=== PATIENT | female | born 1940 ===

== ENCOUNTER 2016-06-26 19:50 | Inpatient (IN) | payer MEDICARE, BC ==
[~2016-06-26] VITALS: Ht 167.6 cm; Wt 111.9 kg
--- NOTE | ~2016-06-26 | OR ---
PATIENT'S NAME: NEREIDA PINEDA [facility] AGE: 75 Y [address] ROOM: [place] [address] [place] [facility] [place]: 06/26/[place] OR/Procedure Report DISCHARGE DATE: 07/04/2016 FAMILY PHYSICIAN: Nash Cervantes MD ATTENDING PHYSICIAN: Joel Figueroa SURGEON: Joel Figueroa MD VASCULAR SURGERY PHYSICIAN: Val Phillips PA-C DATE OF PROCEDURE: 06/28/2016 PREOPERATIVE DIAGNOSES: 1. Small bowel obstruction with possible small bowel abscess versus microperforation versus small-bowel diverticulitis. 2. Abdominal wall hernia. POSTOPERATIVE DIAGNOSES: 1. Small-bowel obstruction secondary to small bowel diverticulitis without evidence of perforation. 2. Abdominal wall hernia. PROCEDURES: 1. Exploratory laparotomy with small-bowel resection of mid-ilium and side- to-side stapled anastomosis. 2. Repair of an abdominal wall hernia with primary closure. ANESTHESIA: General. ESTIMATED BLOOD LOSS: Minimum. SPECIMEN: six inches of small bowel and hernia sac. INDICATION: The patient is a 75-year-old young lady, who was admitted to the hospital with abdominal pain. CT evaluation found there to be evidence of possibly a small bowel perforation with confined abscess. However, she had incomplete obstruction. It was suspicious for even a diverticulum given the mesentery edema. She did not get better and we elected to take her to the operating room for operative intervention. DESCRIPTION OF PROCEDURE: After informed consent, the patient was taken to the operating room. After general endotracheal anesthesia, the patient's abdomen was prepped and draped into a sterile field from the umbilicus, which was noted evidence hernia. We did a skin incision just below the umbilicus. We went down to the hernia defect divided the fascia above and below, entering the peritoneal cavity. No free fluid or free air. We decompressed small bowel and we traced it down to the ileocecal valve region. It was normal with no evidence of appendicitis. We then traced up small bowel up to PATIENT'S NAME: NEREIDA PINEDA [facility] AGE: 75 Y [address] ROOM: [place] [address] [place] [facility] [place]: 06/26/2016 OR/Procedure Report DISCHARGE DATE: 07/04/2016 FAMILY PHYSICIAN: Nash Cervantes MD ATTENDING PHYSICIAN: Joel Figueroa mid abdomen. There was a folded loop of small bowel with thickened mesomesentery. We opened it up, and there was a small bowel diverticulum that had caused the inflammatory changes. We elected to take off about 6 inches of the small bowel above and below at the point of the diverticulum. We divided both ends of the SAI 80 and divided the mesentery with a LigaSure. We then placed the two ends of ileum side by side. We created enterotomies and fired a SAI 80 between them to create a [id number] anastomosis. The enterotomies closed with TA 60. The mesentery defect closed with 3-0 silks. We ran the rest of the small bowel to the ligament of Treitz. No other pathology. Instrument, sponge, and needle count were correct. We then incorporated within, cleaned up the fascia borders of umbilical hernia defect and then closed the midline with 0 looped PDS primary running closure. We closed the skin with subcuticular 4-0 Vicryl. Steri-Strips and sterile dressings applied. The patient tolerated the procedure well, transferred to recovery room in stable condition. JOEL FIGUEROA MD WTS/modl /[id number] d: 07/20/16 1153 t: 08/09/16 1733, OPERATIVE SUMMARY
--- NOTE | ~2016-06-26 | ER ---
PATIENT'S NAME: NEREIDA PINEDA [facility] AGE: 75 Y [address] ROOM: [place] [address] [place] [facility] [place]: 06/26/[place] ER/Outpatient Report DISCHARGE DATE: FAMILY PHYSICIAN: JANNETTE SADLER MD ATTENDING PHYSICIAN: Joel Wong Time of Arrival: 1950 hours. Time of Evaluation: 1950 hours. IDENTIFICATION: A 75-year-old female. CHIEF COMPLAINT: Abdominal pain and back pain. HISTORY OF PRESENT ILLNESS: The patient is a 75-year-old female, who was brought in by [facility] with complaints of abdominal pain. She has had the abdominal pain for a couple of days that is increased in severity today. She took 2 Bentyl tablets prior to arrival and her pain improved from an 8/10 to a 2/10. She has had nausea, but no vomiting. Last bowel movement was this morning and was normal. No blood in her stools. No dark, tarry, or black stools. The patient denies any dysuria. No fever or chills. ALLERGIES: NO KNOWN DRUG ALLERGIES. CURRENT MEDICATIONS: 1. Lipitor 80 mg daily. 2. Bentyl 10 mg 1 to 2 tablets 3 times a day p.r.n. 3. Lantus insulin. 4. NovoLog sliding scale. 5. Synthroid 150 mcg daily. 6. Multivitamin daily. 7. Prilosec 40 mg 2 times daily. 8. Inderal 40 mg 3 times daily. 9. Stool softener as needed. 10. Effexor XR 75 mg once daily. 11. Magnesium oxide. 12. Carvedilol 12.5 mg b.i.d. She is no longer on anticoagulation. She was on Xarelto in the past, but denies being on anticoagulation at this time. 13. Myrbetriq 25 mg daily. MEDICAL PROBLEMS: Diabetes mellitus, insulin requiring; diabetic gastroparesis; dyslipidemia; PATIENT'S NAME: NEREIDA PINEDA [facility] AGE: 75 Y [address] ROOM: [place] [address] [place] [facility] [place]: 06/26/2016 ER/Outpatient Report DISCHARGE DATE: FAMILY PHYSICIAN: JANNETTE SADLER MD ATTENDING PHYSICIAN: Joel Wong obesity; depression; irritable bowel syndrome; diverticulitis; dysrhythmia; atrial fibrillation; chronic UTIs; hypothyroidism; arthritis; and history of kidney stones. PRIOR SURGERIES: Pacemaker, gastric bypass, right total knee, cholecystectomy, and appendectomy. SOCIAL HISTORY: The patient is . Lives in [place]. Tobacco use, denies. Alcohol use, denies. Drug use, denies. REVIEW OF SYSTEMS: All systems reviewed and negative other than what is noted in the HPI. PHYSICAL EXAMINATION: VITAL SIGNS: Pulse 84, respirations 20, temperature 100.2, blood pressure 151/68, and saturations 93% on 2 L per nasal cannula. Per held with rescue squad, her saturations were 87% on room air. GENERAL: A pleasant female, in mild distress. HEENT: Head: Normocephalic and atraumatic. Eyes: Pupils equal and reactive to light and accommodation. Extraocular movements intact. Nose: Mucosa pink. No lesions. Mouth: No lesions. Pharynx benign. NECK: Supple. No lymphadenopathy. LUNGS: Clear to auscultation. Breath sounds are equal. No rhonchi, wheezes, or rales. HEART: Regular rate and rhythm. No murmur, rub, or gallop. ABDOMEN: Protuberant abdomen. Bowel sounds present. Soft. Nondistended. Tender to palpation in the right mid abdomen. No rebound or guarding. SKIN: [place], warm, and dry. No lesions or rashes noted. NEURO: No focal deficit. No significant lower extremity edema. LABORATORY DATA AND X-RAYS: UA, clean catch, negative. EKG showed sinus rhythm at 80 beats per minute, no acute ST elevation or depression. Hemoglobin 14.6, hematocrit 46.5, platelets 178, and white count 17.7 with normal differential. Procalcitonin less than 0.05. INR 1.03. D-dimer 0.47. Cardiac enzymes negative x1. Two-view chest x-ray showed no acute process, pending Radiology over-read. Lactate 1.5. Sodium 138, potassium 4.1, chloride 102, CO2 of 29, BUN 16, creatinine 0.9, and blood sugar 272. Liver enzymes normal. Amylase and lipase normal. UA showed 10 to 20 white cells, full field of epithelial cells, culture is pending. Blood cultures x2 pending. CT scan of the abdomen and pelvis with IV, but no oral contrast, reveals partial appending distal small bowel obstruction in the left lower quadrant with evidence of perforation with 3 cm gas containing fluid collection in the adjacent mesentery. PATIENT'S NAME: NEREIDA PINEDA [facility] AGE: 75 Y [address] ROOM: [place] [address] [place] [facility] [place]: 06/26/2016 ER/Outpatient Report DISCHARGE DATE: FAMILY PHYSICIAN: JANNETTE SADLER MD ATTENDING PHYSICIAN: Joel Wong IMPRESSION: 1. Possible early small bowel obstruction. 2. Small bowel mesentery inflammatory changes with possible 2.5 cm perforation. 3. Diabetes mellitus, insulin requiring. 4. Obesity. 5. Hyperlipidemia. 6. History of kidney stones. 7. History of atrial fibrillation with pacemaker. The patient denies any anticoagulation at this time. PLAN: Admission per hospitalist with surgical consultation. Dr. Wong evaluated the patient in the emergency room. Please refer to their dictations. DERIC BOWMAN MD CAR/modl /[id number] d: 06/27/16 0236 t: 06/28/16 0549, OUTPATIENT REPORT
--- NOTE | ~2016-06-26 | HP ---
PATIENT'S NAME: NEREIDA PINEDA [facility] AGE: 75 Y [address] ROOM: [place] [address] [place] [facility] [place]: 06/26/2016 History & Physical DISCHARGE DATE: FAMILY PHYSICIAN: JANNETTE SADLER MD ATTENDING PHYSICIAN: Joel Wong DATE OF SERVICE: 06/26/2016 CHIEF COMPLAINT: Abdominal pain. HISTORY OF PRESENT ILLNESS: The patient is a 75-year-old female with past medical history as below, who presented to the ER today with approximately 2-3 days of diffuse abdominal discomfort. The discomfort is more pronounced on the right side and is associated with some dry heaves. The CAT scan in the ER demonstrated a partial/pending small bowel obstruction in the left lower quadrant with evidence of perforation with a 3 cm gas containing fluid collection in the adjacent mesentery. There was also a stable, ill-defined hypodense lesion in the liver suspicious for malignancy. The patient appeared quite nontoxic and comfortable in the ER. She was evaluated by Dr. Wong, General Surgery, who would like to trial 24 hours of observation, bowel rest, and antibiotics followed by decision regarding surgical intervention or not. At this point, the patient only complains of some abdominal discomfort and denies chest pain, shortness of breath, nausea, vomiting, or diaphoresis. REVIEW OF SYSTEMS: A complete review of systems was done. All systems are negative aside from pertinent positives mentioned in the HPI. PAST MEDICAL HISTORY: As provided by the patient: 1. Atrial fibrillation, not on anticoagulation. 2. Status post pacemaker. 3. Insulin-dependent diabetes. 4. History of cholecystectomy and appendectomy. 5. Hyperlipidemia. 6. 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 SOCIAL HISTORY: The patient was a smoker over 30 years ago and has no active toxic habits. PATIENT'S NAME: NEREIDA PINEDA [facility] AGE: 75 Y [address] ROOM: [place] [address] [place] [facility] [place]: 06/26/2016 History & Physical DISCHARGE DATE: FAMILY PHYSICIAN: JANNETTE SADLER MD ATTENDING PHYSICIAN: Joel Wong FAMILY HISTORY: Reviewed and is noncontributory due to advanced age and known underlying etiology for her presentation. CURRENT MEDICATIONS: 1. Lipitor. 2. Bentyl. 3. Weekly insulin. 4. Synthroid. 5. Prilosec. 6. Inderal. 7. Effexor. 8. Coreg. 9. Amiodarone. PHYSICAL EXAMINATION: VITAL SIGNS: Blood pressure 160/80, heart rate is in the 80s, saturating 96% on 2 L nasal cannula, afebrile, respirations are 16. GENERAL: Appears as a morbidly obese, elderly female, in no acute distress. NEUROLOGICAL: Nonfocal. Exam shows pupils are equal and reactive to light. LYMPHATIC: Shows no cervical lymphadenopathy. ENDOCRINE: Shows no thyromegaly. LUNGS: Lung exam is clear to auscultation. HEART: Regular rate and rhythm. No appreciable murmurs, gallops, or rubs. GI: Abdomen somewhat tender to palpation throughout. Normoactive bowel sounds. No rebound or guarding. : Reveals no costovertebral angle tenderness. VASCULAR: 2+ pedal pulses. MUSCULOSKELETAL: Unremarkable. SKIN: Warm and dry. PSYCHIATRIC: Appropriate mood, cognition, and affect. REVIEW OF LABS: Significant for a lactate of 1.5, glucose of 272. Negative cardiac enzyme. White count is 17.7 without any bands noted. Procalcitonin is less than 0.05. Urinalysis shows 100 protein, 100 glucose, and 10-[address]BC[address] scan with findings as above. EKG demonstrates sinus rhythm at 80 beats per minute with interventricular conduction delay. ASSESSMENT AND PLAN: This is a 75-year-old female who will be admitted with: 1. Questionable partial small bowel obstruction with perforation; the patient will be followed by General Surgery Service. Antibiotics have been started. She will be kept n.p.o. We will provide her with PATIENT'S NAME: NEREIDA PINEDA [facility] AGE: 75 Y [address] ROOM: [place] [address] [place] [facility] [place]: 06/26/2016 History & Physical DISCHARGE DATE: FAMILY PHYSICIAN: JANNETTE SADLER MD ATTENDING PHYSICIAN: Joel Wong 2. Type 2 diabetes. I will put the patient on a sliding scale as she will be n.p.o. 3. Atrial fibrillation. I will continue the patient on Inderal and amiodarone. She has not been on anticoagulation recently. 4. A suspicious liver lesion. I have raised the issue with the patient and she is not sure as to what kind of workup she has received. I endorsed to her that this will have to be followed up with her PMD once her current condition is addressed. 5. Deep venous thrombosis prophylaxis will be nonpharmacologic for the time being as surgery may be undertaken. 6. Additional management will depend on clinical course. Time dedicated to patient encounter is 35 minutes. MD DAREK ÁLVAREZ/osiel /[id number] D: [id number] T: 550 HISTORY & PHYSICAL
--- NOTE | ~2016-06-26 | DS ---
PATIENT'S NAME: NEREIDA PINEDA [facility] AGE: 75 Y [address] ROOM: [id number] [place] [address] [place] [facility] [place]: 06/26/2016 Discharge Summary DISCHARGE DATE: 07/04/2016 FAMILY PHYSICIAN: Nash Cervantes MD ATTENDING PHYSICIAN: Joel Wong DIAGNOSES: 1. Small-bowel diverticulitis with abscess formation. 2. History of atrial fibrillation. 3. Insulin-dependent diabetes. 4. Obesity. SUMMARY: Ms. Pineda is a 75-year-old female who presented on June 26, 2016, with a 3-4 day history of abdominal pain. Evaluation [place] [address] scan showed small bowel mesentery inflammatory changes that may be a partial obstruction developing or possibly a confined perforation of 2.5 cm air pocket. There was some concern that it may be a small bowel diverticulum with surrounding inflammatory changes. Dr. Wong evaluated the patient. Dr. Wong discussed options of surgery versus conservative treatment with IV antibiotic. It was opted to start with IV antibiotics and bowel rest. She was admitted to the Medical-Surgical Unit under the care of Dr. Wong where she was kept n.p.o., Zosyn 3.375 g IV was ordered. Hospitalist was consulted for medical management. On June 27, the patient was doing okay, her abdomen was sore, but certainly better than it was the day prior. She was not passing any flatus. Dr. Wong had reviewed the imaging with the local radiologist and discussion for exploratory laparotomy with possible small bowel resection was discussed. On the morning of June 28, the patient was still sore, had occasional nausea, she was passing some flatus, white blood cell count was 10.2. Again, Dr. Wong discussed proceeding with surgery to explore this area. Risks, benefits, and alternatives were discussed and the patient agreed to proceed. She was taken to the operating room where she was found to have small bowel diverticulitis with an abscess formation. We completed a small bowel resection. Also repaired incisional hernia primarily. Postoperatively, activity was allowed as tolerated. She was kept n.p.o. Morphine RETAIL RECEIVING CLERK was ordered for pain control. NG was placed to low continuous suction. [place] to dependent drainage. Lovenox was ordered for DVT prophylaxis. The patient continued on Zosyn. On postop day 1, her NG tube was removed. She was advanced to a clear liquid diet. On postop day 3, advanced to full liquids as tolerated. On postop day 5, she was advanced to a regular diabetic diet, her RETAIL RECEIVING CLERK was discontinued, and she was started on [place]. On postop day 5, the patient was doing well. She was passing flatus and had had 2 bowel movements. The patient was concerned about going home as she had limited help. Care Management was consulted for placement in swing bed in [place]. Her Zosyn was discontinued. On postop day 6, the patient was doing well, was ambulating and was tolerating diet. PATIENT'S NAME: NEREIDA PINEDA [facility] AGE: 75 Y [address] ROOM: [place] [address] [place] [facility] [place]: 06/26/2016 Discharge Summary DISCHARGE DATE: 07/04/2016 FAMILY PHYSICIAN: Nash Cervantes MD ATTENDING PHYSICIAN: Joel Wong Arrangements were made for the patient to transfer down to the [place] Swing Bed. I contacted Peace Baker APRN, who accepted her. DISCHARGE INSTRUCTIONS: Included following up with Dr. Wong in 1-2 weeks. Continuing with a regular diabetic diet. Continue with Ensure or Glucerna t.i.d. with meals. She is not to lift greater than 20 pounds for 6 weeks. Continue with PT and OT. Oxygen to keep saturations greater than 90%. Accu- Cheks q.a.c. and h.s. Chemistry panel with magnesium level in 2 days. They can allow the Steri-Strips to fall off on their own. She may shower. DISCHARGE MEDICATIONS: Completed by the hospitalist included, 1. Continuing NovoLog FlexPen 15 units subcutaneous twice daily. 2. Insulin glargine 22 units subcutaneous q.a.m. 3. Omeprazole 40 mg p.o. daily. 4. Inderal XL 120 mg p.o. daily. 5. Tambocor 100 mg p.o. twice daily. 6. Vitamin D3 1000 units p.o. daily. 7. Bentyl 20 mg p.o. 3 times daily p.r.n. 8. Levothroid 175 mcg p.o. daily. 9. Stool softener 100 mg p.o. q.h.s. 10. Tylenol Extra Strength 1000 mg p.o. twice daily. 11. PreserVision 1 tablet p.o. twice daily. 12. Systane eye drops 1 drop 4 times daily. 13. Magnesium oxide 400 mg twice daily. 14. Lipitor 80 mg p.o. q.h.s. 15. Zoloft 50 mg p.o. daily. 16. Coreg 12.5 mg p.o. b.i.d. 17. Theragran 1 tablet p.o. daily. 18. Lasix 20 mg p.o. daily. 19. Trulicity 0.75 mg subcu x7 days. 20. Prescription was written for [place] 5/325 1-2 p.o. q.4 hours p.r.n. pain, dispensing 60 with no refills. For specifics on day-to-day care, please refer to the hospital chart. Final pathology showed changes consistent with diverticular formation with associated mucosal ulceration and acute on chronic inflammation with abscess formation. ANN POLO PA-C FOR MD NED CERVANTES/osiel PATIENT'S NAME: NEREIDA PINEDA [facility] AGE: 75 Y [address] ROOM: [place] [address] [place] [facility] [place]: 06/26/2016 Discharge Summary DISCHARGE DATE: 07/04/2016 FAMILY PHYSICIAN: Nash Cervantes MD ATTENDING PHYSICIAN: Joel Wong /[id number] d: 07/07/16 0228 t: 07/20/16 1111, DISCHARGE SUMMARY
--- NOTE | ~2016-06-26 | HP ---
PATIENT'S NAME: NEREIDA PINEDA [facility] AGE: 75 Y [address] ROOM: [address] [place] [id number] [place] [facility] [place] DATE: 06/26/2016 History & Physical DISCHARGE DATE: FAMILY PHYSICIAN: JANNETTE SADLER MD ATTENDING PHYSICIAN: Joel Figueroa DATE OF SERVICE: REFERRING PHYSICIAN: Daria Marmolejo MD. CHIEF COMPLAINT: Abdominal pain. REVIEW OF RECORD: The patient is a pleasant 75-year-old young lady from [place] who for the last 3 to 4 days has been having abdominal pain. She says she has kind of a chronic right upper quadrant pain radiating up to underneath her breast for a lot of years. She has had several admissions and evaluations for abdominal pain. One in 2014 revealed no acute process, but possibly some liver lesions. The patient says she has never had a workup after that. She states that over the last 3 days, she has had progressive discomfort across her abdomen and could not get comfortable last night. She states that she has not had any fever. She had some nausea and only little emesis. Yesterday, she had a bowel movement and flatus which was normal. She has not had any documented fevers at home, but she had a fever of 100.2 on arrival to the emergency room. When she was at home, she states her pain scale was at 8/10 and when she was here in the ER it was 2/10. She did not look toxic. She was not tachycardic. She has a pacemaker in place and she had no evidence of hypotension. Dr. Marmolejo emergency room physician began the workup. Her white count was noted to be elevated at 17.7000, hemoglobin was fine. Procalcitonin was less than 0.05. Lactate was less than 1.5. Urinalysis had packed epithelial cells. Electrolytes lytes are unremarkable. The patient underwent a CT scan, which I reviewed and was interpreted by an outside radiologist. The lesions in the liver were stable since 2014. In the left lower quadrant, there was an area of small bowel mesentery inflammatory changes may be a partial obstruction developing and possibly a confined perforation of 2.5 cm air pocket. On sagittal, it almost looks like there is a communication to suggest a diverticulum with surrounding inflammatory changes of the small bowel. There was decompressed small bowel. The colon has a lot of diverticula, but no evidence of distention or inflammatory changes to suggest diverticulitis which she has a known history of diverticulosis. I came in fully expecting to have immediate exploratory laparotomy, but the patient looked very well and she was mostly complaining of pain underneath the right breast. Prior to my exam, she said she really did not notice, it localized into the left lower quadrant. PATIENT'S NAME: NEREIDA PINEDA [facility] AGE: 75 Y [address] ROOM: [place] [address] [place]: [facility] [place] DATE: 06/26/2016 History & Physical DISCHARGE DATE: FAMILY PHYSICIAN: JANNETTE SADLER MD ATTENDING PHYSICIAN: Joel Figueroa She has had a previous open cholecystectomy in the past and appendectomy was performed at that time. PAST MEDICAL HISTORY: OPERATIONS: 1. Bilateral cataract extraction. 2. She has had ORIF of a right ankle fracture. 3. She has had a right total knee arthroplasty. 4. She has had an open cholecystectomy with concomitant appendectomy. 5. She has had a colonoscopy within the last 3 or 4 years. 6. Pacemaker insertion. ILLNESSES: 1. Morbid obesity. 2. Insulin-dependent diabetes. 3. History of bradycardia, status post pacemaker insertion. 4. Ventral abdominal wall hernia. 5. Arthritis. 6. History of gastroesophageal reflux disease. 7. Hypothyroidism. ALLERGIES: NONE. MEDICATIONS: 1. Lipitor. 2. Bentyl. 3. Lantus. 4. NovoLog. 5. Synthroid. 6. Multivitamin. 7. Prilosec. 8. Inderal. 9. Stool softener. SOCIAL HISTORY: She does not smoke or drink. She is and has healthy children. Lives in [place]. FAMILY HISTORY: Unchanged from past review documentation in the chart. REVIEW OF SYSTEMS: She denies any spiking fevers. Denies any change in her vision or hearing. PATIENT'S NAME: NEREIDA PINEDA [facility] AGE: 75 Y [address] ROOM: [place] [address] LOCATION: [facility] [place] DATE: 06/26/2016 History & Physical DISCHARGE DATE: FAMILY PHYSICIAN: JANNETTE SADLER MD ATTENDING PHYSICIAN: Joel Figueroa No problems with swallowing. She has not had any blood in her emesis. Has not had a large volume just mostly nausea and spit up. She denies any shortness of breath or cough. Denies any chest pain radiating to her neck or arm. I was asked for location of a pain in her belly, she mostly says it is everywhere, but mostly she points underneath the right breast. The patient does not feel like she is distended. She has had no flatus today or bowel movement today. She has had no dysuria or hematuria. No abnormal vaginal bleeding. She says she has had no peripheral edema. PHYSICAL EXAMINATION: VITAL SIGNS: Her vitals are recorded in the ER flow sheet. Her temperature was 100.2. Prior to my exam, she rates her pain 2/10 on a scale of 1 to 10. HEENT: Head is normocephalic. Sclerae are nonicteric. Mucous membranes are dry. NECK: Supple. There is no adenopathy. No carotid bruits. LUNGS: Clear to auscultation bilaterally. HEART: Regular rhythm. She has a pacemaker in her left subclavian region. BREASTS: Large and pendulous. No palpable mass beneath the right breast and the area of the patient's where she keeps on rubbing it for years. I do not see any evidence of skin rash. No evidence of infection. ABDOMEN: Her obese abdominal wall was examined. She has a right subcostal incision from her open cholecystectomy 30 years ago. She is mildly tender diffusely, but she is not distended and not tympanitic. With deep palpation, she has mild guarding, but she does not localize to the left lower quadrant and the area I suspected beneath her umbilicus, she does have an incarcerated ventral hernia which on CT looks like has fat within it. She definitely does not have diffuse peritonitis. The patient has 2/2 femoral pulses. No peripheral edema at the ankle. IMPRESSION AND PLAN: A 75-year-old young lady presenting with abdominal pain of 3 to 4 days duration. She has leukocytosis, mild peritoneal irritation, but is not septic. CT looks like possibly a confined perforation of the small bowel and on sagittal looks like almost a diverticulum could be outlined. It could be Meckel's and it could be a malignancy perforation. I do not see evidence of foreign body. The small bowel obstruction picture is not very impressive clinically or radiographically. The patient is not toxic. I had a long discussion with her and the family and incisions had been made to proceed with initial treatment for her condition. We are going to have the hospitalist to take care of her diabetes and medical health problems. We are going to hydrate her. Start IV antibiotics and perform re-evaluation and clinical exams. I told her if she fails medical management, she will need exploratory laparotomy and possible bowel resection. We talked about the risk of developing sepsis and increase risk of infection. We talked about possibility of healing with nonoperative management at this time, but I recommend followup PATIENT'S NAME: NEREIDA PINEDA [facility] AGE: 75 Y [address] ROOM: [address] [address] LOCATION: [facility] [place] DATE: 06/26/2016 History & Physical DISCHARGE DATE: FAMILY PHYSICIAN: JANNETTE SADLER MD ATTENDING PHYSICIAN: Joel Figueroa evaluation of the small bowel series etc. The family is in agreement to do initial observation. She is admitted in stable condition. JOEL FIGUEROA MD WTS/modl /[id number] D: [id number] T: [id number] HISTORY & PHYSICAL
[~2016-06-26 19:50] MED LIST: BENTYL10 MG PO; EFFEXOR75 MG PO; INDERAL XL120 MG PO; LANTUS100 UNIT/1 SUB-Q; LEVOTHROID(SY175 MCG PO; NOVOLOG100 UNIT/M SUB-Q; OMEPRAZOLE40 MG PO; STOOL SOFTENER100 MG PO; VITAMIN D1000 UNIT PO; [UNRECOGNIZED DRUG - REMARK] PO
[2016-06-26 20:17] LABS: BASOPHIL # 0.1 K/uL (0.0-0.2); BASOPHIL % 0.4 %; EOSINOPHIL % 0.1 %; HEMATOCRIT 46.5 % (33.0-46.0); HEMOGLOBIN 14.6 g/dL (10.0-15.0); IMMATURE GRANULOCYTE # 0.1 K/uL (0.0-0.3); IMMATURE GRANULOCYTE % 0.5 %; LYMPHOCYTE # 1.5 K/uL (0.8-4.0); LYMPHOCYTE % 8.4 %; MCH 26.5 pg (27.0-34.0); MCHC 31.4 gm/dL (32.0-36.5); MCV 84.5 fl (83.0-98.0); MONOCYTE # 1.6 K/uL (0.0-1.0); MONOCYTE % 9.1 %; MPV 10.9 fl (9.4-12.4); NEUTROPHIL # (ANC) 14.5 K/uL (1.8-7.8); NEUTROPHIL % 81.5 %; NRBC % 0 /100WBC (0-0.00); PLATELET COUNT 178 K/uL (150-450); RDW-CV 15.5 % (11.9-14.6)
[2016-06-26 20:18] LABS: WBC 17.7 K/uL (4.0-11.0)
[2016-06-26 20:18] LABS: BILIRUBIN URINE NEGATIVE (NEGATIVE); BLOOD URINE 10 /UL (NEGATIVE); COLOR URINE YELLOW (YELLOW); GLUCOSE URINE 100 mg/dL (NEGATIVE); KETONE URINE 5 mg/dL (NEGATIVE); LEUKOCYTES URINE 25 /UL (NEGATIVE); NITRITE URINE NEGATIVE (NEGATIVE); PROTEIN URINE 100 mg/dL (NEGATIVE); SPEC GRAVITY URINE 1.025 (1.003-1.035); TURBIDITY URINE 1+ (CLEAR); UROBILINOGEN URINE 1 mg/dL (NORMAL)
[2016-06-26 20:34] LABS: EPITHELIAL URINE FULL FIELD #/HPF (NEGATIVE); RBC URINE 0-2 #/HPF (NEGATIVE)
[2016-06-26 20:34] LABS: ALBUMIN 3.2 gm/dL (3.5-5.0); ALK PHOS 74 IU/L (33-138); ALT 19 IU/L (12-78); ANION GAP 11.1 (10.0-19.0); AST 11 IU/L (10-40); BLOOD UREA NITROGEN 16 mg/dL (6-24); CALCIUM 9.9 mg/dL (8.5-10.5); CHLORIDE 102 mMol/L (96-110); CO2 29 mMol/L (22-32); CREATININE 0.9 mg/dL (0.5-1.1); ESTIMATED GFR (MDRD EQUATION) > 60; POTASSIUM 4.1 mMol/L (3.7-5.1); SODIUM 138 mMol/L (135-145); TOTAL BILIRUBIN 0.6 mg/dL (0.0-1.5); TOTAL PROTEIN 7.2 g/dL (6.0-8.4)
[2016-06-26 20:35] LABS: BACTERIA URINE MANY (NEGATIVE); MUCUS URINE 3+ (NEGATIVE)
[2016-06-26 21:41] LABS: CPK 37 IU/L (21-215); INR - (THERAPEUTIC) 1.03 (0.92-1.07); PROTIME 10.8 SECONDS (9.8-11.4)
[2016-06-27 08:06] LABS: BASOPHIL # 0.1 K/uL (0.0-0.2); BASOPHIL % 0.4 %; EOSINOPHIL % 0.1 %; HEMATOCRIT 42.6 % (33.0-46.0); HEMOGLOBIN 13.2 g/dL (10.0-15.0); IMMATURE GRANULOCYTE # 0.1 K/uL (0.0-0.3); IMMATURE GRANULOCYTE % 0.5 %; LYMPHOCYTE # 2.4 K/uL (0.8-4.0); MCH 26.6 pg (27.0-34.0); MCV 85.9 fl (83.0-98.0); MONOCYTE # 1.5 K/uL (0.0-1.0); MONOCYTE % 10.8 %; MPV 10.2 fl (9.4-12.4); NEUTROPHIL # (ANC) 9.5 K/uL (1.8-7.8); NEUTROPHIL % 70.2 %; NRBC % 0 /100WBC (0-0.00); PLATELET COUNT 143 K/uL (150-450); RBC 4.96 M/uL (3.50-5.50); RDW-CV 15.7 % (11.9-14.6); WBC 13.6 K/uL (4.0-11.0)
[2016-06-27 08:15] LABS: ALBUMIN 2.7 gm/dL (3.5-5.0); BLOOD UREA NITROGEN 16 mg/dL (6-24); CALCIUM 9.5 mg/dL (8.5-10.5); CHLORIDE 105 mMol/L (96-110); CO2 31 mMol/L (22-32); CREATININE 0.8 mg/dL (0.5-1.1); ESTIMATED GFR (MDRD EQUATION) > 60; PHOSPHORUS 2.4 mg/dL (2.5-4.9); SODIUM 141 mMol/L (135-145)
[2016-06-27] MEDS ORDERED: TYLENOL EXTRA500 MG PO (09:33)
[2016-06-27] MEDS ORDERED: PRESERVISION A1 EAC1 PO (09:34)
[2016-06-27] MEDS ORDERED: SYSTANE BALANCE10 ML OPHTH (09:34)
[2016-06-27] MEDS ORDERED: LIPITOR80 MG PO (09:35)
[2016-06-27] MEDS ORDERED: ZOLOFT50 MG PO (09:35)
[2016-06-27] MEDS ORDERED: MAG-OX-400(241400 MG PO (09:35)
[2016-06-27] MEDS ORDERED: COREG12.5 MG PO (09:35)
[2016-06-27] MEDS ORDERED: TAMBOCOR100 MG PO (09:36)
[2016-06-27] MEDS ORDERED: LASIX20 MG PO (09:36)
[2016-06-27] MEDS ORDERED: THERAGRAN-M1 TAB PO (09:36)
[2016-06-27] MEDS ORDERED: NOVOLOG FL100 UNIT/1 SUB-Q (09:37)
[2016-06-27] MEDS ORDERED: TOUJEO SOL300 UNIT/1 SUB-Q (09:38)
[2016-06-27] MEDS ORDERED: TRULICITY0.75 MG/0. SUB-Q (09:40)
[2016-06-28 05:20] LABS: BASOPHIL % 0.4 %; EOSINOPHIL # 0.2 K/uL (0.0-0.5); EOSINOPHIL % 1.5 %; HEMATOCRIT 40.9 % (33.0-46.0); HEMOGLOBIN 12.3 g/dL (10.0-15.0); IMMATURE GRANULOCYTE % 0.4 %; LYMPHOCYTE # 1.5 K/uL (0.8-4.0); LYMPHOCYTE % 14.9 %; MCH 26.3 pg (27.0-34.0); MCHC 30.1 gm/dL (32.0-36.5); MCV 87.4 fl (83.0-98.0); MONOCYTE % 9.9 %; MPV 10.8 fl (9.4-12.4); NEUTROPHIL # (ANC) 7.4 K/uL (1.8-7.8); NEUTROPHIL % 72.9 %; NRBC % 0 /100WBC (0-0.00); PLATELET COUNT 148 K/uL (150-450); RBC 4.68 M/uL (3.50-5.50); RDW-CV 15.6 % (11.9-14.6); WBC 10.2 K/uL (4.0-11.0)
[2016-06-28 05:34] LABS: ALBUMIN 2.4 gm/dL (3.5-5.0); ANION GAP 9.9 (10.0-19.0); BLOOD UREA NITROGEN 14 mg/dL (6-24); CALCIUM 9.4 mg/dL (8.5-10.5); CHLORIDE 108 mMol/L (96-110); CO2 28 mMol/L (22-32); CREATININE 0.6 mg/dL (0.5-1.1); ESTIMATED GFR (MDRD EQUATION) > 60; PHOSPHORUS 2.5 mg/dL (2.5-4.9); POTASSIUM 3.9 mMol/L (3.7-5.1); SODIUM 142 mMol/L (135-145)
[2016-06-29 05:29] LABS: BASOPHIL % 0.3 %; HEMATOCRIT 40.7 % (33.0-46.0); HEMOGLOBIN 12.3 g/dL (10.0-15.0); IMMATURE GRANULOCYTE % 0.4 %; LYMPHOCYTE % 10.8 %; MCH 26.7 pg (27.0-34.0); MCHC 30.2 gm/dL (32.0-36.5); MCV 88.3 fl (83.0-98.0); MONOCYTE # 0.9 K/uL (0.0-1.0); MONOCYTE % 9.7 %; MPV 10.6 fl (9.4-12.4); NEUTROPHIL # (ANC) 7.2 K/uL (1.8-7.8); NEUTROPHIL % 78.8 %; NRBC % 0 /100WBC (0-0.00); PLATELET COUNT 149 K/uL (150-450); RBC 4.61 M/uL (3.50-5.50); RDW-CV 15.5 % (11.9-14.6); WBC 9.1 K/uL (4.0-11.0)
[2016-06-29 05:50] LABS: ANION GAP 10.7 (10.0-19.0); BLOOD UREA NITROGEN 16 mg/dL (6-24); CALCIUM 9.4 mg/dL (8.5-10.5); CHLORIDE 111 mMol/L (96-110); CO2 27 mMol/L (22-32); CREATININE 0.6 mg/dL (0.5-1.1); ESTIMATED GFR (MDRD EQUATION) > 60; POTASSIUM 4.7 mMol/L (3.7-5.1); SODIUM 144 mMol/L (135-145)
[2016-07-01 05:44] LABS: ALBUMIN 2.1 gm/dL (3.5-5.0); BLOOD UREA NITROGEN 9 mg/dL (6-24); CALCIUM 9.5 mg/dL (8.5-10.5); CHLORIDE 107 mMol/L (96-110); CO2 31 mMol/L (22-32); CREATININE 0.6 mg/dL (0.5-1.1); ESTIMATED GFR (MDRD EQUATION) > 60; SODIUM 143 mMol/L (135-145)
[2016-07-01 05:47] LABS: ANION GAP 8.8 (10.0-19.0); PHOSPHORUS 1.8 mg/dL (2.5-4.9); POTASSIUM 3.8 mMol/L (3.7-5.1)
[2016-07-02 05:55] LABS: ANION GAP 12.4 (10.0-19.0); BLOOD UREA NITROGEN 6 mg/dL (6-24); CALCIUM 9.4 mg/dL (8.5-10.5); CHLORIDE 107 mMol/L (96-110); CO2 28 mMol/L (22-32); CREATININE 0.4 mg/dL (0.5-1.1); ESTIMATED GFR (MDRD EQUATION) > 60; POTASSIUM 3.4 mMol/L (3.7-5.1); SODIUM 144 mMol/L (135-145)
[2016-07-03 05:24] LABS: ALBUMIN 2.4 gm/dL (3.5-5.0); ANION GAP 11.7 (10.0-19.0); BLOOD UREA NITROGEN 7 mg/dL (6-24); CALCIUM 9.8 mg/dL (8.5-10.5); CHLORIDE 105 mMol/L (96-110); CO2 31 mMol/L (22-32); CREATININE 0.6 mg/dL (0.5-1.1); ESTIMATED GFR (MDRD EQUATION) > 60; PHOSPHORUS 2.3 mg/dL (2.5-4.9); POTASSIUM 3.7 mMol/L (3.7-5.1); SODIUM 144 mMol/L (135-145)
[2016-07-03 05:25] LABS: MAGNESIUM 1.2 mg/dL (1.8-2.6)
[2016-07-04 05:42] LABS: ALBUMIN 2.2 gm/dL (3.5-5.0); BLOOD UREA NITROGEN 7 mg/dL (6-24); CALCIUM 9.5 mg/dL (8.5-10.5); CHLORIDE 106 mMol/L (96-110); CO2 26 mMol/L (22-32); CREATININE 0.5 mg/dL (0.5-1.1); ESTIMATED GFR (MDRD EQUATION) > 60; PHOSPHORUS 3.1 mg/dL (2.5-4.9); SODIUM 140 mMol/L (135-145)
[2016-07-04 05:48] LABS: ANION GAP 12.4 (10.0-19.0); MAGNESIUM 1.8 mg/dL (1.8-2.6); POTASSIUM 4.4 mMol/L (3.7-5.1)
== END 2016-07-04 13:50 | disposition swing bed (61) | DRG 329 ==
LOC: GMED 19:50 → GMSU 23:07
PROVIDERS: Family Medicine; Internal Medicine; Physician Assistant; ADMIT Surgery
PROC: 0DTB0ZZ Resection of Ileum, Open Approach (ICD-10-PCS; principal; 2016-06-28)
PROC: 0WQF0ZZ Repair Abdominal Wall, Open Approach (ICD-10-PCS; principal; 2016-06-28)
DX: K57.00 Diverticulitis of small intestine with perforation and abscess without bleeding (principal); J96.02 Acute respiratory failure with hypercapnia; K56.69 Other intestinal obstruction; E44.0 Moderate protein-calorie malnutrition; I48.91 Unspecified atrial fibrillation; E66.2 Morbid (severe) obesity with alveolar hypoventilation; E83.39 Other disorders of phosphorus metabolism; E83.42 Hypomagnesemia; E03.9 Hypothyroidism, unspecified; K43.9 Ventral hernia without obstruction or gangrene; E11.9 Type 2 diabetes mellitus without complications; E87.6 Hypokalemia; K76.9 Liver disease, unspecified; E78.5 Hyperlipidemia, unspecified; K21.9 Gastro-esophageal reflux disease without esophagitis; M19.90 Unspecified osteoarthritis, unspecified site; Z79.4 Long term (current) use of insulin; Z90.49 Acquired absence of other specified parts of digestive tract; Z68.39 Body mass index [BMI] 39.0-39.9, adult; Z95.0 Presence of cardiac pacemaker; Z87.891 Personal history of nicotine dependence; Z98.42 Cataract extraction status, left eye; Z98.41 Cataract extraction status, right eye
CPT/HCPCS: C9113; J0131; J0690; J1650; J1940; J2270; J2405; J2543; J3010; J3475; J7030; J7050; J7060; Q9967